=== PATIENT | female | born 1990 | race Caucasian/White ===

== ENCOUNTER 2022-09-16 10:11 | Outpatient (OUT) | payer OTHER, SELFPAY ==
--- NOTE | 2022-09-16 10:21 | US_ITS ---
The [address] [address] Patient Name: OSEAS KISER MRN: [id number] date: 1990 Sex: F Assigned Patient Location: US Current Patient Location: US Accession/Order Number: [id number] Exam Date: 09/16/2022 10:25 Report Date: 09/16/2022 12:14 At the request of: LAURENT MALAVE Procedure: US venous doppler LE LT EXAMINATION: US venous doppler LE LT HISTORY: Pain Of Left Calf M79.662 COMPARISON: No relevant comparison available. FINDINGS: REGION: Left lower extremity THROMBI: None. COMPRESSIBILITY: Normal compressibility. FLOW: Normal waveform and antegrade flow between 5 and 20 cm/s. OTHER: None. US/US venous doppler LE LT IMPRESSION: 1. No deep vein thrombus within the left lower extremity. Electronically authenticated by: ROSIE COHEN Date: 09/16/2022 12:14
== END 2022-09-16 10:12 | disposition home or self-care (01) ==
LOC: US 10:14
PROVIDERS: PCP Nurse Practitioner; Visit Provider Personal Emergency Response Attendant
DX: M79.662 Pain in left lower leg (principal)
CPT/HCPCS: 93971

== ENCOUNTER 2022-10-09 14:43 | Outpatient (RCR) | payer OTHER, SELFPAY | END 2022-10-17 16:44 | disposition home or self-care (01) | LOC: PT 14:43 | PROVIDERS: PCP Nurse Practitioner; Visit Provider Personal Emergency Response Attendant | DX: M54.50 Low back pain, unspecified (principal) | CPT/HCPCS: 97110; 97112; 97113; 97162 ==

== ENCOUNTER 2022-12-09 20:05 | Outpatient (REF) | payer OTHER, SELFPAY ==
[2022-12-16 13:07] LABS: Age Gdln ACOG Testing Note (.); HPV Aptima Negative (Negative); IGP, Aptima HPV, rfx 16/18,45 Note (.)
== END 2022-12-09 20:06 | disposition home or self-care (01) ==
LOC: LAB 20:05
PROVIDERS: PCP Nurse Practitioner; Visit Provider Physician Assistant
DX: Z01.419 Encounter for gynecological examination (general) (routine) without abnormal findings (principal)
CPT/HCPCS: 87624; G0145